=== PATIENT | male | born 1975 | race Caucasian/White ===

== ENCOUNTER 2017-07-20 07:58 | Emergency (ER) | payer BC ==
[~2017-07-20] VITALS: Ht 182.9 cm; Wt 95.2 kg
[~2017-07-20 07:58] MED LIST: NAPROSYN500 MG PO
[2017-07-20 08:46] LABS: BASOPHIL (%) 0.3 % (0-1); EOSINOPHIL (%) 0.6 % (0-5); EOSINOPHIL COUNT 0.1 K/uL (0-0.3); HEMATOCRIT 42.6 % (38.0-50.0); HEMOGLOBIN 15.3 G/DL (12.5-16.6); IMMATURE GRANULOCYTE (%) 0.2 % (0.0-0.7); LYMPHOCYTE (%) 10.8 % (15-42); LYMPHOCYTE COUNT 1.3 K/uL (1.0-2.8); MCH 30.8 PG (29.0-34.0); MCHC 35.9 G/DL (30.0-36.0); MCV 85.7 FL (86-99); MONOCYTE (%) 5.9 % (3-12); MONOCYTE COUNT 0.7 K/uL (0-0.8); NEUTROPHIL (%) 82.2 % (45-76); NEUTROPHIL COUNT 10.2 K/uL (1.8-6.4); PLATELET COUNT 232 K/uL (156-360); RBC DIS.WIDTH-CV 12.2 % (11.8-14.6); RBC DIS.WIDTH-SD 38.3 % (39-53); RED BLOOD COUNT 4.97 M/uL (4.00-5.50); WHITE BLOOD COUNT 12.4 K/uL (4.1-10.2)
[2017-07-20 08:55] LABS: CHLORIDE 107 mEq/L (99-109); POTASSIUM 4.5 mEq/L (3.7-5.4); SODIUM 140 mEq/L (136-147)
[2017-07-20 08:56] LABS: GLUCOSE 109 mg/dL (70-99)
[2017-07-20 09:00] LABS: CREATININE 1.2 mg/dL (0.6-1.3); GFR ESTIMATE (CALCULATED) > 59 mL/min/ (58.99-99999)
[2017-07-20 09:01] LABS: UREA NITROGEN (BUN) 16 mg/dL (9-23)
[2017-07-20 09:50] LABS: APPEARANCE CLEAR ((CLEAR)); BILIRUBIN NEGATIVE; BLOOD NEGATIVE; COLOR YELLOW ((YELLOW)); GLUCOSE (STRIP) NEGATIVE; KETONES NEGATIVE; LEUKOCYTES NEGATIVE; NITRITE NEGATIVE; PROTEIN (STRIP) NEGATIVE; SPECIFIC GRAVITY 1.026 (1.000-1.030); UROBILINOGEN 0.2 MG/DL (0.2-1.0)
[2017-07-20] MEDS ORDERED: FLOMAX0.4 MG PO (11:29)
[2017-07-20] MEDS ORDERED: ZOFRAN4 MG PO (11:29)
[2017-07-20] MEDS ORDERED: PERCOCET 5/31 TABLET PO (11:29)
[2017-07-20 11:40] VITALS: BP 164/104
== END 2017-07-20 11:41 | disposition home or self-care (01) ==
LOC: EME 07:58
PROVIDERS: Emergency Medicine
DX: N13.2 Hydronephrosis with renal and ureteral calculous obstruction (principal); F17.200 Nicotine dependence, unspecified, uncomplicated; Z87.442 Personal history of urinary calculi
CPT/HCPCS: 74176; 80048; 81003; 85025; 99281; 99284; J1885; J2270; J2405; J7030

== ENCOUNTER 2017-07-22 12:32 | Observation (INO) | payer BC ==
[~2017-07-22] VITALS: Ht 182.9 cm; Wt 91.2 kg
[~2017-07-22 12:32] MED LIST changes: +FLOMAX0.4 MG PO; +PERCOCET 5/31 TABLET PO; +ZOFRAN4 MG PO
[2017-07-22 13:36] LABS: ALBUMIN 4.3 g/dL (3.2-4.8); CHLORIDE 101 mEq/L (99-109); SODIUM 136 mEq/L (136-147)
[2017-07-22 13:38] LABS: GLUCOSE 112 mg/dL (70-99); TOTAL PROTEIN 6.9 g/dL (6.4-8.3)
[2017-07-22 13:40] LABS: TOTAL BILIRUBIN 2.2 mg/dL (0.0-1.0)
[2017-07-22 13:42] LABS: ALKALINE PHOSPHATASE 82 IU/L (3-129); CREATININE 1.4 mg/dL (0.6-1.3); GFR ESTIMATE (CALCULATED) > 59 mL/min/ (58.99-99999)
[2017-07-22 13:43] LABS: UREA NITROGEN (BUN) 20 mg/dL (9-23)
[2017-07-22 13:44] LABS: AST (GOT) 12 IU/L (2-34)
[2017-07-22 13:45] LABS: ALT (GPT) 20 IU/L (3-49); LIPASE 3 U/L (1.0-51.0)
[2017-07-22 13:47] LABS: BASOPHIL (%) 0.2 % (0-1); EOSINOPHIL (%) 0.1 % (0-5); HEMATOCRIT 38.5 % (38.0-50.0); HEMOGLOBIN 13.9 G/DL (12.5-16.6); IMMATURE GRANULOCYTE (%) 0.5 % (0.0-0.7); LYMPHOCYTE (%) 7.9 % (15-42); LYMPHOCYTE COUNT 1.1 K/uL (1.0-2.8); MCHC 36.1 G/DL (30.0-36.0); MCV 85.9 FL (86-99); MONOCYTE (%) 7.3 % (3-12); NEUTROPHIL COUNT 11.2 K/uL (1.8-6.4); PLATELET COUNT 208 K/uL (156-360); RBC DIS.WIDTH-CV 11.9 % (11.8-14.6); RBC DIS.WIDTH-SD 37.3 % (39-53); RED BLOOD COUNT 4.48 M/uL (4.00-5.50); WHITE BLOOD COUNT 13.3 K/uL (4.1-10.2)
[2017-07-22 15:05] LABS: APPEARANCE CLEAR ((CLEAR)); BILIRUBIN NEGATIVE; BLOOD MODERATE; COLOR YELLOW ((YELLOW)); GLUCOSE (STRIP) NEGATIVE; KETONES 20; LEUKOCYTES NEGATIVE; NITRITE NEGATIVE; PROTEIN (STRIP) 30; SPECIFIC GRAVITY 1.025 (1.000-1.030); UROBILINOGEN 0.2 MG/DL (0.2-1.0)
[2017-07-22 15:08] LABS: BACTERIA NONE SEEN /HPF; CALCIUM OXALATE CRYSTALS 1+ /HPF; EPITHELIAL CELLS NONE SEEN /HPF; MUCUS TRACE /LPF; UCUL ADDED? YES
[2017-07-22] MEDS ORDERED: ZOFRAN4 MG PO (15:57)
[2017-07-22] MEDS ORDERED: FLOMAX0.4 MG PO (15:57)
[2017-07-22 18:05] VITALS: BP 136/81
[2017-07-23 00:08] VITALS: BP 132/73
[2017-07-23 06:50] LABS: HEMATOCRIT 35.2 % (38.0-50.0); MCH 29.8 PG (29.0-34.0); MCHC 34.1 G/DL (30.0-36.0); MCV 87.3 FL (86-99); PLATELET COUNT 196 K/uL (156-360); RBC DIS.WIDTH-SD 38.8 % (39-53); RED BLOOD COUNT 4.03 M/uL (4.00-5.50); WHITE BLOOD COUNT 7.6 K/uL (4.1-10.2)
[2017-07-23 07:18] LABS: CHLORIDE 106 MEQ/L (99-109); CREATININE 1.1 MG/DL (0.6-1.3); GFR ESTIMATE (CALCULATED) > 59 mL/min/ (58.99-99999); GLUCOSE 97 mg/dL (70-99); SODIUM 140 MEQ/L (136-147); UREA NITROGEN (BUN) 20 mg/dL (9-23)
[2017-07-23 07:36] VITALS: BP 140/78
[2017-07-23 11:19] VITALS: BP 176/94
== END 2017-07-23 11:36 | disposition home or self-care (01) ==
LOC: EME 12:32 → EDOF 16:06 → 5EAST 16:06 → ENRESERV 16:08 → 5EAST 17:52 → ENPENDDIS 07-23 → 5EAST 07-23 10:17
PROVIDERS: Emergency Medicine; Hospitalist
DX: N13.2 Hydronephrosis with renal and ureteral calculous obstruction (principal); N13.4 Hydroureter; N17.9 Acute kidney failure, unspecified; R03.0 Elevated blood-pressure reading, without diagnosis of hypertension; K80.20 Calculus of gallbladder without cholecystitis without obstruction; Z87.442 Personal history of urinary calculi; F17.200 Nicotine dependence, unspecified, uncomplicated; Z84.1 Family history of disorders of kidney and ureter; Z82.49 Family history of ischemic heart disease and other diseases of the circulatory system; Z83.3 Family history of diabetes mellitus
CPT/HCPCS: 74176; 80048; 80053; 81003; 83690; 85025; 85027; 87040; 87086; 99281; 99285; G0378; J0696; J1885; J2270; J2405; J3010; J7030